=== PATIENT | male | born 1970 | race Caucasian/White ===

== ENCOUNTER 2021-04-06 16:42 | Emergency (ER) | payer SELFPAY ==
[2021-04-06 17:19] LABS: HEMOGLOBIN 15.3 gm/dl (14.0-17.5); RED BLOOD COUNT 4.68 M/UL (4.20-5.50); WHITE BLOOD COUNT 12.5 K/UL (4.5-11.0)
[2021-04-06 17:47] LABS: BUN/CREATININE RATIO 12 (0-10)
[2021-04-06] MEDS ORDERED: HYDROCODON-ACE1 EAC4 PO (21:07)
== END 2021-04-06 21:32 | disposition home or self-care (01) ==
LOC: ER1 16:42
PROVIDERS: Preventive Medicine Occupational Medicine
DX: R10.9 Unspecified abdominal pain (principal); R07.9 Chest pain, unspecified
CPT/HCPCS: 71045; 80053; 81001; 82550; 82553; 83690; 83874; 84484; 85025; 93005; 96374; 96375; 99284; J1885; J2405; J7030